=== PATIENT | female | born 1975 | race Caucasian/White ===

== ENCOUNTER → 2016-11-25 | Outpatient (CLI) | payer OTHER ==
--- NOTE | 2016-11-25 09:01 | MM ---
Reason for exam: clinical finding. Baseline mammogram. Indicated problem(s): pain in both breasts. Physical Findings: Nurse did not find any significant physical abnormalities on exam. MG Diagnostic Mammo w CAD ALFONSO Bilateral CC and MLO view(s) were taken. There are scattered fibroglandular densities. There is no discrete abnormality. These results were verbally communicated with the patient and result sheet given to the patient on 11/25/16. ASSESSMENT: Negative, BI-RAD 1 RECOMMENDATION: Routine screening mammogram of both breasts in 1 year. Manage on a clinical basis with regard to left rash and right recurrent boil.
--- NOTE | 2016-11-25 09:48 | US ---
EXAMINATION TYPE: US gallbladder DATE OF EXAM: 11/25/2016 COMPARISON: NONE CLINICAL HISTORY: R10.84 GENERALIZED ABD PAIN. Epigastric pain and RUQ pain noted with exercise/lift ing. EXAM MEASUREMENTS: Liver Length: 16.7 cm Gallbladder Wall: 0.2 cm CBD: 0.4 cm Right Kidney: 10.3 x 5.6 x 4.0 cm Pancreas: hyperechoic but homogeneous Liver: no masses seen Gallbladder: wnl Evidence for sonographic Hernandez's sign: No CBD: wnl Right Kidney: thin cortex as <0.7cm; medullary sponge kidney appearance is noted with comparison of left kidney also assessed with same appearance and thin cortex. Some thinning of renal cortex is present in both kidneys. Renal sizes are within normal limits. Scann ing of the midline epigastric area level of pain shows no worrisome bowel or fat-containing ventral w all hernia IMPRESSION: No gallstones or ultrasound evidence for acute cholecystitis. No significant finding is s een to account for patient's symptoms. 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 Correlate clinically with renal lab values.
== END ==
LOC: RADUSWWP 07:06
PROVIDERS: ATTEND Surgery
DX: N64.52 Nipple discharge (principal); N64.4 Mastodynia; N28.89 Other specified disorders of kidney and ureter
CPT/HCPCS: 76705; G0204

== ENCOUNTER 2017-08-01 08:21 | Emergency (ER) | payer OTHER ==
[2017-08-01 08:25] VITALS: BP 106/72; PULSE 77; RESP 18; TEMP 98.2
--- NOTE | 2017-08-01 08:37 | ED ---
General Adult HPI - General Chief complaint: Extremity Injury, Lower Stated complaint: Foot Injury Time Seen by Provider: 08/01/17 08:32 Source: patient, RN notes reviewed Mode of arrival: wheelchair Limitations: no limitations - History of Present Illness Initial comments: Patient 41-year-old female presenting to the emergency room today with a chief complaint of injury to the right ankle that occurred yesterday. She states is a slight step and her home that she stepped backwards and caused her to roll the ankle. She states top of the foot is worse or. She doesn't that she's had previous injuries similar to this in the past. States worse with certain movements today. Denies any other complaints or symptoms. Patient denies any recent fever, chills, shortness of breath, chest pain, back pain, abdominal pain , nausea or vomiting, headaches or visual changes, or any other complaints. - Related Data Home Medications Medication Instructions Recorded Confirmed Albuterol Inhaler [Ventolin Hfa 1 - 2 puff INHALATION RT-Q6H PRN 07/28/15 Inhaler] Ibuprofen [Motrin] 800 mg PO BID PRN 07/28/15 07/28/15 Previous Rx's Medication Instructions Recorded Meclizine [Antivert] 25 mg PO TID PRN #30 tab 07/30/15 Ibuprofen [Motrin] 600 mg PO Q6HR PRN #30 day 08/01/17 Allergies Allergy/AdvReac Type Severity Reaction Status Date / Time iodine Allergy Swelling Verified 08/01/17 08:25 shrimp Allergy Anaphylaxis Verified 08/01/17 08:25 Sulfa (Sulfonamide Allergy Rash/Hives Verified 08/01/17 08:25 Antibiotics) venom-honey bee Allergy Anaphylaxis Verified 08/01/17 08:25 Iodinated Contrast- Oral and AdvReac Dyspnea Verified 08/01/17 08:25 IV Dye [Iodinated Contrast Media - IV Dye] metronidazole [From Flagyl] AdvReac WEAKNESS Verified 08/01/17 08:25 Review of Systems ROS Statement: Those systems with pertinent positive or pertinent negative responses have been documented in the HPI. ROS Other: All systems not noted in ROS Statement are negative. Past Medical History Past Medical History: Fibromyalgia History of Any Multi-Drug Resistant Organisms: None Reported Past Surgical History: No Surgical Hx Reported Past Psychological History: No Psychological Hx Reported Smoking Status: Former smoker Past Alcohol Use History: None Reported Past Drug Use History: None Reported - Past Family History Mother Additional Family Medical History / Comment(s): Had cancerous cells removed General Exam - General Exam Comments Initial Comments: General: The patient is awake and alert, in no distress, and does not appear acutely ill. Neck: The neck is supple, there is no tenderness or JVD. Musculoskeletal: Patient does have normal appearance of the right foot no obvious deformity. Shows good range of motion both flexion and extension at the right ankle and down to the toes. Has tenderness over the proximal fourth metatarsal and in the ATFL area. No other bony tenderness. No tenderness to the right knee. Sensations intact. Pedal pulse 2+. Strength 5/5. Neurological: A&O x 3. CN II-XII intact, There are no obvious motor or sensory deficits. Coordination appears grossly intact. Speech is normal. Skin: Skin is warm and dry and no rashes or lesions are noted. Psychiatric: Normal mood and affect. Limitations: no limitations Course Vital Signs 08/01/17 08:22 Temperature 98.2 F Pulse Rate 77 Respiratory 18 Rate Blood Pressure 106/72 O2 Sat by Pulse 96 Oximetry Medical Decision Making - Medical Decision Making X-ray reviewed negative for any acute fracture dislocation. Results were discussed with the patient. Patient given Trev wrap. Emergency room. Advised following up in 7-10 days if symptoms persist for repeat x-rays. Advised ice elevate the affected area. Disposition Clinical Impression: Ankle sprain Disposition: HOME SELF-CARE Condition: Good Instructions: Ankle Sprain (ED) Additional Instructions: Please continue to ice elevate the affected areas 4 times daily for 20 minutes at a time. Please use ibuprofen for pain. Please use Trev wrap on up and moving around but do not sleep with it on. Please follow-up in 7-10 days if symptoms persist for repeat x-rays as discussed. Prescriptions: Ibuprofen [Motrin] 600 mg PO Q6HR PRN #30 day PRN Reason: Pain Is patient prescribed a controlled substance at d/c from ED?: No Referrals: Dmitry Schmitt MD [Primary Care Provider] - 1-2 days Time of Disposition: 09:03
--- NOTE | 2017-08-01 09:04 | XR ---
PROCEDURE: XR foot complete RT 3 views DATE AND TIME: 08/01/2017 8:44 AM REFERRING PHYSICIAN: Robby Trejo CLINICAL INDICATION: PHH, Pain following injury. TECHNIQUE: Department protocol. COMPARISON: 06/13/2013 FINDINGS: There is no fracture or malalignment. Advanced degenerative changes are noted the first MTP . The soft tissues are unremarkable. IMPRESSION: NO ACUTE PROCESS.
== END 2017-08-01 09:10 | disposition home or self-care (01) ==
LOC: EC 08:21
DX: S93.401A Sprain of unspecified ligament of right ankle, initial encounter (principal); Z87.891 Personal history of nicotine dependence; Z91.048 Other nonmedicinal substance allergy status; Z91.013 Allergy to seafood; Z88.2 Allergy status to sulfonamides; Z91.030 Bee allergy status; Z91.041 Radiographic dye allergy status; Z88.1 Allergy status to other antibiotic agents; X50.1XXA Overexertion from prolonged static or awkward postures, initial encounter; Y92.009 Unspecified place in unspecified non-institutional (private) residence as the place of occurrence of the external cause
CPT/HCPCS: 99283

== ENCOUNTER → 2017-09-16 | Outpatient (CLI) | payer OTHER ==
--- NOTE | 2017-09-16 13:37 | ECHOF ---
Referral Reason:R07.89 Chest Pain MEASUREMENTS -------- HEIGHT: 152.4 cm WEIGHT: 97.5 kg BP: RVIDd: 2.6 cm (< 3.3) IVSd: 1.0 cm (0.6 - 1.1) LVIDd: 4.3 cm (3.9 - 5.3) LVPWd: 0.9 cm (0.6 - 1.1) IVSs: 1.2 cm LVIDs: 3.4 cm LVPWs: 1.3 cm LA Diam: 3.2 cm (2.7 - 3.8) LAESV Index (A-L): 19.83 ml/m Ao Diam: 2.9 cm (2.0 - 3.7) AV Cusp: 2.0 cm (1.5 - 2.6) LA Diam: 3.4 cm (2.7 - 3.8) MV EXCURSION: 20.130 mm (> 18.000) MV EF SLOPE: 106 mm/s (70 - 150) EPSS: 0.5 cm MV E Renato: 0.62 m/s MV DecT: 221 ms MV A Renato: 0.55 m/s MV E/A Ratio: 1.14 RAP: 5.00 mmHg RVSP: 20.37 mmHg FINDINGS -------- Sinus rhythm. This was a technically good study. LV size, wall thickness and systolic function are normal, with an EF greater than 55%. The left david tricular size is normal. The right ventricle is normal in size. The left atrial size is normal. Normal LA size by volume 22+/-6 ml/m2. The right atrial size is normal. The aortic valve is trileaflet, and appears structurally normal. No aortic stenosis or regurgitation. Mild mitral regurgitation is present. Mild tricuspid regurgitation present. There is no evidence of pulmonary hypertension. The right v entricular systolic pressure, as measured by Doppler, is 20.37mmHg. There is no pulmonic regurgitation present. The aortic root size is normal. There is no pericardial effusion. CONCLUSIONS -------- 1. LV size, wall thickness and systolic function are normal, with an EF greater than 55%. 2. The left ventricular size is normal. 3. The right ventricle is normal in size. 4. The left atrial size is normal. 5. The right atrial size is normal. 6. The aortic valve is trileaflet, and appears structurally normal. No aortic stenosis or regurgitati on. 7. Mild mitral regurgitation is present. 8. Mild tricuspid regurgitation present. 9. There is no evidence of pulmonary hypertension. 10. The right ventricular systolic pressure, as measured by Doppler, is 20.37mmHg. 11. There is no pulmonic regurgitation present. 12. The aortic root size is normal. 13. There is no pericardial effusion. MERCHANDISE PICKUP/RECEIVING ASSOCIATE: Marleny Herrera RDCS
== END | disposition home or self-care (01) ==
LOC: RADECHMAIN 10:56
PROVIDERS: ATTEND Family Medicine
DX: I08.1 Rheumatic disorders of both mitral and tricuspid valves (principal)
CPT/HCPCS: 93306

== ENCOUNTER → 2020-05-17 | Outpatient (CLI) | payer OTHER ==
--- NOTE | 2020-05-17 21:46 | MR ---
EXAMINATION TYPE: MR knee LT wo con DATE OF EXAM: 05/17/2020 COMPARISON: None HISTORY: Left knee pain, swelling, and locking for 1 year TECHNIQUE: Multiplanar, multisequence imaging of the left knee is performed without IV contrast. FINDINGS: The osseous structures are intact and there is no bone contusion, fracture or focal intraosseous abno rmality. The collateral and cruciate ligaments are intact. There is no evidence of meniscal tear. There is mild thinning of the articular cartilages the femoral condyles in both medial and lateral co mpartment indicating mild degenerative change. There is a small joint effusion and there is a focal loss of cartilage in the medial patellar facet w ith adjacent subchondral bone changes consistent with chondral malacia patella. IMPRESSION: 1. Chondromalacia patella and small joint effusion. 2. Mild osteophytic change of the medial lateral compartment in the. 3. No evidence of acute meniscal or ligamentous injury.
--- NOTE | 2020-05-17 21:50 | MR ---
EXAMINATION TYPE: MR knee RT wo con DATE OF EXAM: 05/17/2020 COMPARISON: None HISTORY: Right knee pain, swelling, and locking for 1 year. TECHNIQUE: Multiplanar, multisequence imaging of the right knee is performed without IV contrast. FINDINGS: The osseous structures are intact and there is no bone contusion or fracture. There is a small joint effusion. There is loss of the cartilage of the medial facet of the patella wi th mild subchondral bony changes consistent with chondromalacia patella. There is mild thinning of the cartilages of the medial compartment left knee indicating mild degenera tive arthritis.. The cruciate and collateral ligaments are intact. There is no evidence of meniscal tear. IMPRESSION: 1. No evidence of acute meniscal or ligamentous injury. 2. Small joint effusion and chondromalacia patella. 3. Mild osteoarthritic change with mild thinning of the articular cartilage of the medial compartment of the knee.
== END | disposition home or self-care (01) ==
LOC: RADMRIMAIN 16:02
PROVIDERS: ATTEND Physician Assistant
DX: M22.41 Chondromalacia patellae, right knee (principal); M22.42 Chondromalacia patellae, left knee; M17.11 Unilateral primary osteoarthritis, right knee

== ENCOUNTER → 2020-06-06 | Outpatient (CLI) | payer OTHER ==
--- NOTE | 2020-06-06 08:48 | US ---
EXAMINATION TYPE: US abdomen complete DATE OF EXAM: 06/06/2020 COMPARISON: US 11/25/16 CLINICAL HISTORY: R10.11 right upper quad pain. EXAM MEASUREMENTS: Liver Length: 17.0 cm Gallbladder Wall: 0.1 cm CBD: 0.5 cm Spleen: 10.0 cm Right Kidney: 10.7 x 6.8 x 4.7 cm Left Kidney: 12.0 x 5.6 x 5.1 cm Pancreas: Tail obscured by overlying bowel gas Liver: No pathology seen Gallbladder: No stones seen Evidence for sonographic Hernandez's sign: No CBD: wnl Spleen: wnl Right Kidney: No hydronephrosis or masses seen, Thinning cortex = 0.9 cm. Ecogenic foci mid = 0.5 cm . ? stone Left Kidney: Thinning renal cortex = 0.9 cm Upper IVC: wnl Abd Aorta: wnl The liver is homogenous. The intrahepatic portion of the IVC and proximal abdominal aorta are within normal limits. There is no evidence of cholelithiasis. Common bile duct is unremarkable. The visu alized portions of the pancreas are homogenous. The spleen is unremarkable. There is renal parenchym al thinning noted. Nonobstructing calculus right kidney. IMPRESSION: Nonobstructing nephrolithiasis right kidney. Renal parenchymal thinning noted.
== END | disposition home or self-care (01) ==
LOC: RADUSWWP 07:07
PROVIDERS: ATTEND Family Medicine
DX: N20.0 Calculus of kidney (principal)
CPT/HCPCS: 76700

== ENCOUNTER 2022-03-12 00:37 | Emergency (ER) | payer OTHER ==
[2022-03-12] MEDS ORDERED: DIPH,PERTUS(ACELL)TETVAC-LF 0.5 ML VIAL IM ONE (00:38)
[2022-03-12] MEDS ORDERED: BACITRACIN OINT 1 EACH PACKET TOPICAL ONE (00:38)
--- NOTE | 2022-03-12 00:46 | ED ---
General Adult HPI - General Source: patient, police, EMS, RN notes reviewed Mode of arrival: EMS Limitations: no limitations <Kip Gray - Last Filed: 03/12/22 00:44> <Elpidio Juares - Last Filed: 03/12/22 05:14> - General Stated complaint: Mental health Time Seen by Provider: 03/12/22 00:38 - History of Present Illness Initial comments: This is a 46-year-old female presents emergency dept via EMS with police for psychiatric evaluation. Patient brother has been drinking alcohol tonight had an appointment with significant other and threatened harm herself. Patient did cut her left wrist superficially with a knife. She is unsure last tetanus was. Patient states she drank a few beers and a couple shots. Patient has no other physical complaints. Patient denies any illicit drug use other than marijuana denies being homicidal. (Kip Gray) - Related Data Home Medications Medication Instructions Recorded Confirmed Albuterol Inhaler [Ventolin Hfa 1 - 2 puff INHALATION RT-Q6H PRN 07/28/15 07/28/15 Inhaler] Ibuprofen [Motrin] 800 mg PO BID PRN 07/28/15 07/28/15 Previous Rx's Medication Instructions Recorded Meclizine [Antivert] 25 mg PO TID PRN #30 tab 07/30/15 Ibuprofen [Motrin] 600 mg PO Q6HR PRN #30 day 08/01/17 Allergies Allergy/AdvReac Type Severity Reaction Status Date / Time iodine Allergy Swelling Verified 08/01/17 08:25 shrimp Allergy Anaphylaxis Verified 08/01/17 08:25 Sulfa (Sulfonamide Allergy Rash/Hives Verified 08/01/17 08:25 Antibiotics) venom-honey bee Allergy Anaphylaxis Verified 08/01/17 08:25 Iodinated Contrast Media AdvReac Dyspnea Verified 08/01/17 08:25 [Iodinated Contrast Media - IV Dye] metronidazole [From Flagyl] AdvReac WEAKNESS Verified 08/01/17 08:25 Review of Systems ROS Other: All systems not noted in ROS Statement are negative. <Kip Gray - Last Filed: 03/12/22 00:44> ROS Other: All systems not noted in ROS Statement are negative. <Elpidio Juares - Last Filed: 03/12/22 05:14> ROS Statement: Those systems with pertinent positive or pertinent negative responses have been documented in the HPI. Past Medical History Past Medical History: Fibromyalgia History of Any Multi-Drug Resistant Organisms: None Reported Past Surgical History: No Surgical Hx Reported Past Psychological History: No Psychological Hx Reported Past Alcohol Use History: None Reported Past Drug Use History: None Reported - Past Family History Mother Additional Family Medical History / Comment(s): Had cancerous cells removed <Kip Gray - Last Filed: 03/12/22 00:44> General Exam Limitations: no limitations General appearance: alert, in no apparent distress Head exam: Present: atraumatic, normocephalic, normal inspection Eye exam: Present: normal appearance, PERRL, EOMI. Absent: scleral icterus, conjunctival injection, periorbital swelling ENT exam: Present: normal exam, normal oropharynx, mucous membranes moist Neck exam: Present: normal inspection, full ROM. Absent: tenderness, meningismus, lymphadenopathy Respiratory exam: Present: normal lung sounds bilaterally. Absent: respiratory distress, wheezes, rales, rhonchi, stridor Cardiovascular Exam: Present: regular rate, normal rhythm, normal heart sounds. Absent: systolic murmur, diastolic murmur, rubs, gallop, clicks Extremities exam: Present: other (Left wrist superficial laceration) Neurological exam: Present: alert, oriented X3, CN II-XII intact Psychiatric exam: Present: depressed Skin exam: Present: warm, dry, intact, normal color. Absent: rash <Kip Gray M - Last Filed: 03/12/22 00:44> Course Vital Signs 03/12/22 00:49 Temperature 97.6 F Pulse Rate 82 Respiratory 12 Rate Blood Pressure 103/64 O2 Sat by Pulse 100 Oximetry Medical Decision Making <Elpidio Juares - Last Filed: 03/12/22 05:14> - Medical Decision Making Was pt. sent in by a medical professional or institution (, PA, BOTTOM SANDER, urgent care, hospital, or jail...) When possible be specific @ -No Did you speak to anyone other than the patient for history (EMS, parent, family, police, friend...)? What history was obtained from this source @ -Yes, EMS Did you review nursing and triage notes (agree or disagree)? Why? @ -I reviewed and agree with nursing and triage notes Were old charts reviewed (outside hosp., previous admission, EMS record, old EKG, old radiological studies, urgent care reports/EKG's, jail records)? Report findings @ -No old charts were reviewed Differential Diagnosis (chest pain, altered mental status, abdominal pain women, abdominal pain men, vaginal bleeding, weakness, fever, dyspnea, syncope, headache, dizziness, GI bleed, back pain, seizure, CVA, palpatations, mental health)? @ -Suicidal ideation, homicide ideation, EtOH intoxication EKG interpreted by me (3pts min.). @ -None X-rays interpreted by me (1pt min.). @ -None done CT interpreted by me (1pt min.). @ -None done U/S interpreted by me (1pt. min.). @ -None done What testing was considered but not performed or refused? (CT, X-rays, U/S, labs)? Why? @ -None What meds were considered but not given or refused? Why? @ -None Did you discuss the management of the patient with other professionals (professionals i.e. , PA, BOTTOM SANDER, lab, RT, psych nurse, social work associate, train operations supervisor, teacher, optics technical officer, adult protective caseworker)? Give summary @ -Yes, EPS nurse Was smoking cessation discussed for >3mins.? @ -No Was critical care preformed (if so, how long)? @ -No Were there social determinants of health that impacted care today? How? (Homelessness, low income, unemployed, alcoholism, drug addiction, transportation, low edu. Level, literacy, decrease access to med. care, mcc, re hab)? @ -No Was there de-escalation of care discussed even if they declined (Discuss DNR or withdrawal of care, Hospice)? DNR status @ -No What co-morbidities impacted this encounter? (DM, HTN, Smoking, COPD, CAD, Cancer, CVA, ARF, Chemo, Hep., AIDS, mental health diagnosis, sleep apnea, morbid obesity)? @ -Alcoholism Was patient admitted / discharged? Hospital course, mention meds given and route, prescriptions, significant lab abnormalities, going to OR and other pertinent info. @ -The patient was seen and evaluated emergency department. Initially, the patient was seen by the [facility] and was sent out to me pending EPS evaluation. The patient was seen and evaluated by EPS and they did recommend the patient could be discharged home. The patient had a safety plan signed and agree upon and follow-up resources were given. The patient was agreeable to this and all of her questions were answered appropriately. The patient was discharged home in stable condition. Undiagnosed new problem with uncertain prognosis? @ -No Drug Therapy requiring intensive monitoring for toxicity (Heparin, Nitro, Insulin, Cardizem)? @ -No Were any procedures done? @ -No Diagnosis/symptom? @ -Suicidal ideation Acute, or Chronic, or Acute on Chronic? @ -Acute Uncomplicated (without systemic symptoms) or Complicated (systemic symptoms)? @ -Uncomplicated Side effects of treatment? @ -No Exacerbation, Progression, or Severe Exacerbation? @ -No Poses a threat to life or bodily function? How? (Chest pain, [place], [place], pneumonia, PE, COPD, DKA, ARF, appy, cholecystitis, CVA, Diverticulitis, Homicidal, Suicidal, threat to staff... and all critical care pts) @ -No (Elpidio Juares) - Lab Data Lab Results 03/12/22 Range/Units 00:46 Urine Opiates Screen Not Detected (NotDetected) Ur Oxycodone Screen Not Detected (NotDetected) Urine Methadone Screen Not Detected (NotDetected) Ur Propoxyphene Screen Not Detected (NotDetected) Ur Barbiturates Screen Not Detected (NotDetected) U Tricyclic Antidepress Not Detected (NotDetected) Ur Phencyclidine Scrn Not Detected (NotDetected) Ur Amphetamines Screen Not Detected (NotDetected) U Methamphetamines Scrn Not Detected (NotDetected) U Benzodiazepines Scrn Not Detected (NotDetected) Urine Cocaine Screen Not Detected (NotDetected) U Marijuana (THC) Screen Detected H (NotDetected) Disposition <Kip Gray - Last Filed: 03/12/22 00:44> Is patient prescribed a controlled substance at d/c from ED?: No Time of Disposition: 05:00 <Elpidio Juares - Last Filed: 03/12/22 05:14> Clinical Impression: Suicidal behavior Disposition: HOME SELF-CARE Condition: Stable Instructions (If sedation given, give patient instructions): Suicide Prevention (ED) Referrals: Dmitry Schmitt MD [REFERRING] - 1-2 days
[2022-03-12 00:52] VITALS: BP 103/64; PULSE 82; RESP 12; TEMP 97.6
[2022-03-12 01:32] LABS: Amphetamine Screen,Urine Not Detected (NotDetected); Barbiturate Screen,Urine Not Detected (NotDetected); Benzodiazepines Screen,Urine Not Detected (NotDetected); Cocaine Screen,Urine Not Detected (NotDetected); Methadone Screen, Urine Not Detected (NotDetected); Opiate Screen,Urine Not Detected (NotDetected); Oxycodone Screen, Urine Not Detected (NotDetected); Phencyclidine Screen,Urine Not Detected (NotDetected); Tricyclic Antidepressant,Urine Not Detected (NotDetected); Urn Cannabinoid Scrn Detected (NotDetected)
== END 2022-03-12 05:17 | disposition home or self-care (01) ==
LOC: EC 00:37
DX: R45.851 Suicidal ideations (principal); Z23 Encounter for immunization; Z91.041 Radiographic dye allergy status; Z91.013 Allergy to seafood; Z88.2 Allergy status to sulfonamides; Z91.030 Bee allergy status; Z88.1 Allergy status to other antibiotic agents
CPT/HCPCS: 80306; 82075; 90471; 90715; 99285